=== PATIENT | female | born 2000 | race African-American/Black ===

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

== ENCOUNTER 2021-03-07 17:24 | Emergency (ER) | payer BC, OTHER ==
[~2021-03-07] VITALS: Ht 167.6 cm; Wt 97.1 kg
[~2021-03-07 17:24] MED LIST: SPRINTEC1 EACH PO
[2021-03-07 17:30] VITALS: BP 130/73
[2021-03-07 19:02] LABS: URINE BILIRUBIN NEGATIVE (Negative); URINE BLOOD NEGATIVE (Negative); URINE CLARITY SL CLOUDY; URINE COLOR YELLOW; URINE GLUCOSE-RANDOM* NEGATIVE (Negative); URINE KETONES NEGATIVE (Negative); URINE LEUKOCYTES-REFLEX NEGATIVE (Negative); URINE NITRITE-REFLEX NEGATIVE (Negative); URINE PROTEIN (DIPSTICK) NEGATIVE (Negative); URINE SPECIFIC GRAVITY >= 1.030 (1.005-1.035); URINE UROBILINOGEN 0.2 E.U./dl (0.2-1.0)
== END 2021-03-07 20:20 | disposition home or self-care (01) ==
LOC: ER 17:24
PROVIDERS: Nurse Practitioner Family
DX: O26.891 Other specified pregnancy related conditions, first trimester (principal); K59.09 Other constipation; Z3A.01 Less than 8 weeks gestation of pregnancy; Z79.899 Other long term (current) drug therapy